=== PATIENT | male | born 1960 | race Caucasian/White ===

== ENCOUNTER 2017-12-22 13:13 | Observation (INO) | payer BC ==
[2017-12-22] MEDS ORDERED: NITROGLYCERIN OINT 1 INCH/GM PACKET TOPICAL STA (13:24)
[2017-12-22] MEDS ORDERED: ASPIRIN 81 MG PO STA (13:24)
--- NOTE | 2017-12-22 13:28 | ED ---
General Adult HPI - General Stated complaint: chest pain Time Seen by Provider: 12/22/17 13:15 Source: RN notes reviewed - History of Present Illness Initial comments: This is a 57-year-old male who presents emergency Department with a past medical history of hypertension high cholesterol. Patient states he has a family history of heart disease his father had a heart attack and bypass surgery in his early 50s. Patient states today's had 4 episodes of chest pain and shortness of breath as well as some sweating. Patient states the pain is on the left side of his chest does not appear to radiate anywhere but is quite significant and takes his breath away and it lasts approximately 10 minutes. Patient states it does seem to be associated with bending over at times but it doesn't always occur when he bends over. Patient states taking a deep breath does not increase the pain. Patient denies any recent history of fever chills or cough. Patient states currently is not having any chest pain. Patient denies any lightheadedness dizziness or near syncopal episode. Patient denies abdominal pain. Patient denies vomiting or diarrhea. - Related Data Home Medications Medication Instructions Recorded Confirmed Aspirin EC [Ecotrin Low Dose] 81 mg PO HS 12/22/17 12/22/17 Cetirizine HCl [Zyrtec] 10 mg PO DAILY 12/22/17 12/22/17 Glucosam/Timothy-Msm1/C/Jim/Bosw 1 tab PO DAILY 12/22/17 12/22/17 [Glucosamine-Chondroitin Tablet] Lisinopril [Zestril] 20 mg PO DAILY 12/22/17 12/22/17 Loratadine [Claritin] 10 mg PO DAILY 12/22/17 12/22/17 Metoprolol Succinate (ER) [Toprol 50 mg PO HS 12/22/17 12/22/17 Xl] Multivitamins, Thera [Multivitamin 1 tab PO DAILY 12/22/17 12/22/17 (formulary)] Simvastatin [Zocor] 20 mg PO HS 12/22/17 12/22/17 Tamsulosin HCl [Flomax] 0.4 mg PO HS 12/22/17 12/22/17 Allergies Allergy/AdvReac Type Severity Reaction Status Date / Time No Known Allergies Allergy Verified 12/22/17 13:41 Review of Systems ROS Statement: Those systems with pertinent positive or pertinent negative responses have been documented in the HPI. ROS Other: All systems not noted in ROS Statement are negative. General Exam - General Exam Comments Initial Comments: GENERAL: Patient is well-developed and well-nourished. Patient is nontoxic and well- hydrated and is in mild distress. ENT: Neck is soft and supple. No significant lymphadenopathy is noted. Oropharynx is clear. Moist mucous membranes. Neck has full range of motion without eliciting any pain. EYES: The sclera were anicteric and conjunctiva were pink and moist. Extraocular movements were intact and pupils were equal round and reactive to light. Eyelids were unremarkable. PULMONARY: Unlabored respirations. Good breath sounds bilaterally. No audible rales rhonchi or wheezing was noted. CARDIOVASCULAR: There is a regular rate and rhythm without any murmurs gallops or rubs. ABDOMEN: Soft and nontender with normal bowel sounds. No palpable organomegaly was noted. There is no palpable pulsatile mass. SKIN: Skin is clear with no lesions or rashes and otherwise unremarkable. NEUROLOGIC: Patient is alert and oriented x3. Cranial nerves II through XII are grossly intact. Motor and sensory are also intact. Normal speech, volume and content. Symmetrical smile. MUSCULOSKELETAL: Normal extremities with adequate strength and full range of motion. LYMPHATICS: No significant lymphadenopathy is noted PSYCHIATRIC: Normal psychiatric evaluation. Course Vital Signs 12/22/17 12/22/17 12/22/17 13:26 13:57 14:36 Temperature 98.2 F Pulse Rate 72 78 76 Respiratory 16 16 16 Rate Blood Pressure 164/100 143/87 138/78 O2 Sat by Pulse 97 96 95 Oximetry Medical Decision Making - Medical Decision Making Patient's chest x-ray showed no acute abnormality. Patient's EKG showed a normal sinus rhythm at 74 bpm GA interval 176 QRS is 132 QT interval 382 QTC is 424. Patient's EKG shows no ST segment elevation or depression patient does have a right bundle ez block however. Patient had another episode of chest pain while in the emergency department but only lasted for a short duration. Patient's chest pain was abnormal for him and that associated with his risk factors and shortness of breath I decided to start the patient heparin for unstable angina. I spoke with Dr. Lowe agreed to admit the patient I admitted the patient wrote admitting orders I consult cardiology continued heparin Nitropaste and aspirin on the floor. - Lab Data Result diagrams: 12/22/17 13:35 12/22/17 13:35 Lab Results 12/22/17 12/22/17 12/22/17 Range/Units 13:35 13:35 13:35 WBC 7.0 (3.8-10.6) k/uL RBC 5.69 (4.30-5.90) m/uL Hgb 16.8 (13.0-17.5) gm/dL Hct 47.4 (39.0-53.0) % MCV 83.4 (80.0-100.0) fL MCH 29.5 (25.0-35.0) pg MCHC 35.4 (31.0-37.0) g/dL RDW 13.6 (11.5-15.5) % Plt Count 153 (150-450) k/uL Neutrophils % 55 % Lymphocytes % 33 % Monocytes % 6 % Eosinophils % 2 % Basophils % 1 % Neutrophils # 3.9 (1.3-7.7) k/uL Lymphocytes # 2.3 (1.0-4.8) k/uL Monocytes # 0.4 (0-1.0) k/uL Eosinophils # 0.1 (0-0.7) k/uL Basophils # 0.1 (0-0.2) k/uL PT (9.0-12.0) sec INR (<1.2) APTT (22.0-30.0) sec Sodium 142 (137-145) mmol/L Potassium 4.1 (3.5-5.1) mmol/L Chloride 105 (98-107) mmol/L Carbon Dioxide 26 (22-30) mmol/L Anion Gap 11 mmol/L BUN 30 H (9-20) mg/dL Creatinine 1.01 (0.66-1.25) mg/dL Est GFR (CKD-EPI)AfAm >90 (>60 ml/min/1.73 sqM) Est GFR (CKD-EPI)NonAf 81 (>60 ml/min/1.73 sqM) Glucose 102 H (74-99) mg/dL Calcium 9.7 (8.4-10.2) mg/dL Magnesium 1.8 (1.6-2.3) mg/dL Total Bilirubin 0.8 (0.2-1.3) mg/dL AST 30 (17-59) U/L ALT 39 (21-72) U/L Alkaline Phosphatase 77 (38-126) U/L Total Creatine Kinase 169 (55-170) U/L CK-MB (CK-2) 1.2 (0.0-2.4) ng/mL CK-MB (CK-2) Rel Index 0.7 Troponin I <0.012 (0.000-0.034) ng/mL Total Protein 7.1 (6.3-8.2) g/dL Albumin 4.1 (3.5-5.0) g/dL 12/22/17 Range/Units 13:35 WBC (3.8-10.6) k/uL RBC (4.30-5.90) m/uL Hgb (13.0-17.5) gm/dL Hct (39.0-53.0) % MCV (80.0-100.0) fL MCH (25.0-35.0) pg MCHC (31.0-37.0) g/dL RDW (11.5-15.5) % Plt Count (150-450) k/uL Neutrophils % % Lymphocytes % % Monocytes % % Eosinophils % % Basophils % % Neutrophils # (1.3-7.7) k/uL Lymphocytes # (1.0-4.8) k/uL Monocytes # (0-1.0) k/uL Eosinophils # (0-0.7) k/uL Basophils # (0-0.2) k/uL PT 10.5 (9.0-12.0) sec INR 1.1 (<1.2) APTT 24.1 (22.0-30.0) sec Sodium (137-145) mmol/L Potassium (3.5-5.1) mmol/L Chloride (98-107) mmol/L Carbon Dioxide (22-30) mmol/L Anion Gap mmol/L BUN (9-20) mg/dL Creatinine (0.66-1.25) mg/dL Est GFR (CKD-EPI)AfAm (>60 ml/min/1.73 sqM) Est GFR (CKD-EPI)NonAf (>60 ml/min/1.73 sqM) Glucose (74-99) mg/dL Calcium (8.4-10.2) mg/dL Magnesium (1.6-2.3) mg/dL Total Bilirubin (0.2-1.3) mg/dL AST (17-59) U/L ALT (21-72) U/L Alkaline Phosphatase (38-126) U/L Total Creatine Kinase (55-170) U/L CK-MB (CK-2) (0.0-2.4) ng/mL CK-MB (CK-2) Rel Index Troponin I (0.000-0.034) ng/mL Total Protein (6.3-8.2) g/dL Albumin (3.5-5.0) g/dL Critical Care Time Critical Care Time: Yes Total Critical Care Time: 35 Disposition Clinical Impression: Unstable angina pectoris Disposition: ADMITTED IP TO THIS HOSP Referrals: Jose Argueta III, MD [Primary Care Provider] - 1-2 days Time of Disposition: 15:19
[2017-12-22 13:44] LABS: Basophils # (A) 0.1 k/uL (0-0.2); Basophils % (A) 1 %; Eosinophils # (A) 0.1 k/uL (0-0.7); Eosinophils % (A) 2 %; HCT 47.4 % (39.0-53.0); HGB 16.8 gm/dL (13.0-17.5); Lymphocytes # (A) 2.3 k/uL (1.0-4.8); Lymphocytes % (A) 33 %; MCH 29.5 pg (25.0-35.0); MCHC 35.4 g/dL (31.0-37.0); MCV 83.4 fL (80.0-100.0); Mean Platelet Volume 7.9; Monocytes # (A) 0.4 k/uL (0-1.0); Monocytes % (A) 6 %; Neutrophils # (A) 3.9 k/uL (1.3-7.7); Neutrophils % (A) 55 %; Platelet Count 153 k/uL (150-450); RBC 5.69 m/uL (4.30-5.90); RDW 13.6 % (11.5-15.5)
[2017-12-22 13:53] LABS: INR 1.1 (<1.2); Partial Thromboplastin Time 24.1 sec (22.0-30.0); Prothrombin Time 10.5 sec (9.0-12.0)
[2017-12-22 13:54] LABS: ALT 39 U/L (21-72); AST 30 U/L (17-59); Albumin 4.1 g/dL (3.5-5.0); Alkaline Phosphatase 77 U/L (38-126); Anion Gap 11 mmol/L; Blood Urea Nitrogen 30 mg/dL (9-20); Calcium 9.7 mg/dL (8.4-10.2); Carbon Dioxide 26 mmol/L (22-30); Chloride 105 mmol/L (98-107); Glucose 102 mg/dL (74-99); Magnesium 1.8 mg/dL (1.6-2.3); Potassium 4.1 mmol/L (3.5-5.1); Sodium 142 mmol/L (137-145); Total Bilirubin 0.8 mg/dL (0.2-1.3); Total Protein 7.1 g/dL (6.3-8.2)
[2017-12-22 14:08] LABS: Creatine Kinase 169 U/L (55-170)
[2017-12-22 14:22] LABS: Creatine Kinase MB 1.2 ng/mL (0.0-2.4); Troponin I <0.012 ng/mL (0.000-0.034)
--- NOTE | 2017-12-22 14:53 | XR ---
EXAMINATION TYPE: XR chest 2V DATE OF EXAM: 12/22/2017 HISTORY: Chest Pain. REFERENCE: NONE. FINDINGS: The lungs are clear. Pleural space are clear. Heart size is upper limits of normal. IMPRESSION: BORDERLINE CARDIOMEGALY.
[2017-12-22] MEDS ORDERED: HEPARIN SODIUM,PORCINE 5,000 UNIT/ML 1 ML VIAL IV ONE (15:16)
[2017-12-22] MEDS ORDERED: NITROGLYCERIN SL TABS 0.4 MG TAB SUBLINGUAL PRN (15:19)
[2017-12-22] MEDS ORDERED: HEPARIN SOD,PORK IN 0.45% NACL 25,000 UNIT in 0.45% NACL 1 500ML.BAG IV SCH (15:30)
--- NOTE | 2017-12-22 16:08 | P.HPIM ---
History of Present Illness 57-year-old pleasant gentleman came in with complaints of chest pain happens when he moves his chest when he bends down. But his chest pain was constant for about [address] from [employer] to the [employer]. Patient's chest pain changes with the movement and 7/10 in severity patient's chest pain is not really pleuritic but the has to catch his breath for a second when he had this chest pain is at [employer]. Patient denied any diaphoresis nausea lightheadedness. Patient just pain is not associated with food nonradiating and nonexertional. EKG showed some right bundle branch block. Troponin is negative patient has some risk factors including premature coronary artery disease in father and personal history of hypertension diabetes mellitus Review of Systems REVIEW OF SYSTEMS: CONSTITUTIONAL: No fever, no malaise, no fatigue. HEENT: No recent visual problems or hearing problems. Denied any sore throat. CARDIOVASCULAR: No orthopnea, PND, no palpitations, no syncope. PULMONARY: No shortness of breath, no cough, no hemoptysis. GASTROINTESTINAL: No diarrhea, no nausea, no vomiting, no abdominal pain. Normoactive bowel sounds. NEUROLOGICAL: No headaches, no weakness, no numbness. HEMATOLOGICAL: Denies any bleeding or petechiae. GENITOURINARY: Denies any burning micturition, frequency, or urgency. MUSCULOSKELETAL/RHEUMATOLOGICAL: Denies any joint pain, swelling, or any muscle pain. ENDOCRINE: Denies any polyuria or polydipsia. The rest of the 14-point review of systems is negative. Past Medical History Past Medical History: Hyperlipidemia, Hypertension History of Any Multi-Drug Resistant Organisms: None Reported Past Surgical History: Hernia Repair Past Psychological History: No Psychological Hx Reported Smoking Status: Never smoker Past Alcohol Use History: None Reported Past Drug Use History: None Reported Medications and Allergies Home Medications Medication Instructions Recorded Confirmed Type Aspirin EC [Ecotrin Low Dose] 81 mg PO HS 12/22/17 12/22/17 History Cetirizine HCl [Zyrtec] 10 mg PO DAILY 12/22/17 12/22/17 History Glucosam/Timothy-Msm1/C/Jim/Bosw 1 tab PO DAILY 12/22/17 12/22/17 History [Glucosamine-Chondroitin Tablet] Lisinopril [Zestril] 20 mg PO DAILY 12/22/17 12/22/17 History Loratadine [Claritin] 10 mg PO DAILY 12/22/17 12/22/17 History Metoprolol Succinate (ER) [Toprol 50 mg PO HS 12/22/17 12/22/17 History Xl] Multivitamins, Thera [Multivitamin 1 tab PO DAILY 12/22/17 12/22/17 History (formulary)] Simvastatin [Zocor] 20 mg PO HS 12/22/17 12/22/17 History Tamsulosin HCl [Flomax] 0.4 mg PO HS 12/22/17 12/22/17 History Allergies Allergy/AdvReac Type Severity Reaction Status Date / Time No Known Allergies Allergy Verified 12/22/17 13:41 Physical Exam Vitals: Vital Signs Temp Pulse Resp BP Pulse Ox 12/22/17 15:39 70 16 121/74 100 12/22/17 14:36 76 16 138/78 95 12/22/17 13:57 78 16 143/87 96 12/22/17 13:26 98.2 F 72 16 164/100 97 Intake and Output 12/22/17 12/22/17 12/22/17 06:59 14:59 22:59 Other: Weight 106.594 kg PHYSICAL EXAMINATION: GENERAL: The patient is alert and oriented x3, not in any acute distress. Well developed, well nourished. HEENT: Pupils are round and equally reacting to light. EOMI. No scleral icterus. No conjunctival pallor. Normocephalic, atraumatic. No pharyngeal erythema. No thyromegaly. CARDIOVASCULAR: S1 and S2 present. No murmurs, rubs, or gallops. PULMONARY: Chest is clear to auscultation, no wheezing or crackles. ABDOMEN: Soft, nontender, nondistended, normoactive bowel sounds. No palpable organomegaly. MUSCULOSKELETAL: No joint swelling or deformity. EXTREMITIES: No cyanosis, clubbing, or pedal edema. NEUROLOGICAL: Gross neurological examination did not reveal any focal deficits. SKIN: No rashes. Results CBC & Chem 7: 12/22/17 13:35 12/22/17 13:35 Labs: Abnormal Lab Results - Last 24 Hours (Table) 12/22/17 Range/Units 13:35 BUN 30 H (9-20) mg/dL Glucose 102 H (74-99) mg/dL Assessment and Plan Plan: -Chest pain: Atypical in nature patient will be evaluated by cardiology patient meant and up needing a stress test because of his risk factors. It appears to be either musculoskeletal or pericardial in nature. We will rule out acute coronary syndromes with troponins and EKGs 2 more sets -Hypertension -hyperlipidemia -Benign prostatic hypertrophy For above-mentioned chronic medical problems patient will be resumed and continued on home medications
[2017-12-22 17:24] VITALS: BMI 34.1
[2017-12-22] MEDS: NITROGLYCERIN OINT 1 INCH/GM PACKET TOPICAL SCH (17:36)
[2017-12-22 19:32] LABS: Creatine Kinase 133 U/L (55-170)
[2017-12-22 19:34] VITALS: RESP 16
[2017-12-22 19:45] LABS: Creatine Kinase MB 0.9 ng/mL (0.0-2.4); Troponin I <0.012 ng/mL (0.000-0.034)
[2017-12-22] MEDS ORDERED: METOPROLOL SUCCINATE (ER) 50 MG TAB.ER.24H PO SCH (21:00)
[2017-12-22] MEDS ORDERED: TAMSULOSIN 0.4 MG CAP.ER.24H PO SCH (21:00)
[2017-12-22] MEDS ORDERED: ATORVASTATIN 10 MG TAB PO SCH (21:00)
[2017-12-23] MEDS: NITROGLYCERIN OINT 1 INCH/GM PACKET TOPICAL SCH ×2 (01:31→04:59)
[2017-12-23 01:59] LABS: Creatine Kinase 122 U/L (55-170)
[2017-12-23 02:11] LABS: Creatine Kinase MB 0.9 ng/mL (0.0-2.4); Troponin I <0.012 ng/mL (0.000-0.034)
[2017-12-23 07:45] LABS: Cholesterol 168 mg/dL (<200); HDL Cholesterol 54 mg/dL (40-60); LDL Cholesterol,Calculated 93 mg/dL (0-99); Triglycerides 105 mg/dL (<150)
[2017-12-23] MEDS ORDERED: ASPIRIN 325 MG TAB PO SCH ×2 (09:00)
[2017-12-23] MEDS ORDERED: LISINOPRIL 20 MG TAB PO SCH (09:00)
[2017-12-23] MEDS ORDERED: NON-FORMULARY DRUG (Glucosam/Chon-Msm1/C/Mang/Bosw [Glucosamine-Chondroitin Tablet] 1 TAB) PO SCH (09:00)
[2017-12-23] MEDS ORDERED: LORATADINE 10 MG TAB PO SCH (09:00)
[2017-12-23] MEDS ORDERED: NON-FORMULARY DRUG (Cetirizine Hcl [Zyrtec] 10 MG) PO SCH (09:00)
--- NOTE | 2017-12-23 09:58 | P.CRDCN ---
History of Present Illness Consult date: 12/23/17 Consult reason: chest pain History of present illness: Mr. Hollingsworth is a pleasant 57-year-old male past medical history significant for hypertension, dyslipidemia and strong family history of CAD with father requiring bypass in his 50's. He denies personal history of CAD. He states he had a stress test many years ago that was negative. We have been asked to see him in consultation for complaints of chest pain. First on Saturday of last week he felt a tight sensation in his chest while at work sitting down. It was in the precordial region with no radiation of pain to the arm, back, neck or jaw. This was brief and went away on its own with no associated symptoms. Then again on Saturday while loading groceries in the car at [employer] he again felt a tight sensation in left anterior precodial region with shortness of breath. He describes this as a tight, numbing sensation. He denies dizziness, palpitations, diaphoresis, nausea or vomiting. The symptoms went away on their own after he sat down in the car but returned after arriving home and unloading the groceries again. By the time he arrived at the hospital he was chest pain free with no shortness of breath. EKG reveals right bundle branch block pattern. This was compared to old EKG from 2007, no changes. Chest xray reveals cardiomegaly with no acute cardiopulmonary process. Laboratory data reviewed, hemoglobin 16.8, potassium 4.1, magnesium 1.8, cardiac enzymes negative 3, LDL 93, HDL 54. Current cardiac medications include Zocor 20 mg daily, Toprol 50 mg daily, lisinopril 20 mg daily and aspirin 81 mg daily. Review of Systems At the time of my exam: CONSTITUTIONAL: Denies fever. Denies chills. EYES: Denies blurred vision. Denies vision changes. Denies eye pain. EARS, NOSE, MOUTH & THROAT: Denies headache. Denies sore throat. Denies ear pain. CARDIOVASCULAR: Denies chest pain. Denies shortness of breath. Denies orthopnea. Denies PND. Denies palpitations. RESPIRATORY: Denies cough. GASTROINTESTINAL: Denies abdominal pain. Denies diarrhea. Denies constipation. Denies nausea. Denies vomiting. MUSCULOSKELETAL: Denies myalgias. INTEGUMENTARY: Denies pruitis. Denies rash. NEUROLOGIC: Denies numbness. Denies tingling. Denies weakness. PSYCHIATRIC: Denies anxiety. Denies depression. ENDOCRINE: Denies fatigue. Denies weight change. Denies polydipsia. Denies polyurina. GENITOURINARY: Denies burning, hematuria or urgency with micturation. HEMATOLOGIC: Denies history of anemia. Denies bleeding. Past Medical History Past Medical History: Hyperlipidemia, Hypertension History of Any Multi-Drug Resistant Organisms: None Reported Past Surgical History: Hernia Repair Past Anesthesia/Blood Transfusion Reactions: No Reported Reaction Past Psychological History: No Psychological Hx Reported Smoking Status: Never smoker Past Alcohol Use History: None Reported Past Drug Use History: None Reported - Past Family History Father Family Medical History: Coronary Artery Disease (CAD) Additional Family Medical History / Comment(s): CABG, COLLAPSED LUNG, BRAIN TUMOR BEHIND EYE WITH REMOVAL Mother Family Medical History: Coronary Artery Disease (CAD) Medications and Allergies Home Medications Medication Instructions Recorded Confirmed Type Aspirin EC [Ecotrin Low Dose] 81 mg PO HS 12/22/17 12/22/17 History Cetirizine HCl [Zyrtec] 10 mg PO DAILY 12/22/17 12/22/17 History Glucosam/Timothy-Msm1/C/Jim/Bosw 1 tab PO DAILY 12/22/17 12/22/17 History [Glucosamine-Chondroitin Tablet] Lisinopril [Zestril] 20 mg PO DAILY 12/22/17 12/22/17 History Loratadine [Claritin] 10 mg PO DAILY 12/22/17 12/22/17 History Metoprolol Succinate (ER) [Toprol 50 mg PO HS 12/22/17 12/22/17 History Xl] Multivitamins, Thera [Multivitamin 1 tab PO DAILY 12/22/17 12/22/17 History (formulary)] Simvastatin [Zocor] 20 mg PO HS 12/22/17 12/22/17 History Tamsulosin HCl [Flomax] 0.4 mg PO HS 12/22/17 12/22/17 History Allergies Allergy/AdvReac Type Severity Reaction Status Date / Time No Known Allergies Allergy Verified 12/22/17 13:41 Physical Exam Vitals: Vital Signs Temp Pulse Pulse Resp BP BP Pulse Ox 12/23/17 03:50 98.0 F 59 L 16 108/67 95 12/23/17 03:22 53 L 16 12/23/17 00:00 61 16 12/22/17 23:18 98.1 F 74 16 157/76 95 12/22/17 20:00 69 16 12/22/17 19:31 97.8 F 67 16 123/80 95 12/22/17 17:20 70 12/22/17 16:01 97.9 F 70 18 133/84 96 12/22/17 15:39 70 16 121/74 100 12/22/17 14:36 76 16 138/78 95 12/22/17 13:57 78 16 143/87 96 12/22/17 13:26 98.2 F 72 16 164/100 97 Intake and Output 12/22/17 12/23/17 12/23/17 22:59 06:59 14:59 Intake Total 154.926 Balance 154.926 Intake: Intake, IV Titration 154.926 Amount Heparin Sod,Pork in 0.45% 154.926 NaCl 25,000 unit In 0.45 % NaCl 1 500ml.bag @ 9.3 UNITS/KG/HR 19.82 mls/hr IV .Q24H [facility] Rx#: [id number] Other: Voiding Method Toilet Toilet # Voids 3 Weight 111.1 kg Blood pressure 119/79 heart rate 58 afebrile maintaining oxygen saturation on room air GENERAL: This is a 57-year-old male in no apparent distress at the time of my examination. HEENT: Head is atraumatic, normocephalic. Pupils are equal, round. Sclerae anicteric. Conjunctivae are clear. Mucous membranes of the mouth are moist. Neck is supple. There is no jugular venous distention. No carotid bruit is heard. LUNGS: Clear to auscultation no wheezes, rales or rhonchi. No chest wall tenderness is noted on palpation or with deep breathing. HEART: Regular rate and rhythm without murmurs, rubs or gallops. S1 and S2 heard. ABDOMEN: Soft, nontender. Bowel sounds are heard. No organomegaly noted. EXTREMITIES: No evidence of peripheral edema and no calf tenderness noted. VASCULAR: Radial and dorsalis pedis pulses palpated, no evidence of clubbing. NEUROLOGIC: Patient is awake, alert and oriented x3. Results 12/22/17 13:35 03/25/18 13:35 Cardiac Enzymes 12/22/17 12/22/17 12/22/17 Range/Units 13:35 13:35 19:03 AST 30 (17-59) U/L CK-MB (CK-2) 1.2 0.9 (0.0-2.4) ng/mL Troponin I <0.012 <0.012 (0.000-0.034) ng/mL 12/23/17 Range/Units 00:55 AST (17-59) U/L CK-MB (CK-2) 0.9 (0.0-2.4) ng/mL Troponin I <0.012 (0.000-0.034) ng/mL Coagulation 12/22/17 12/22/17 12/23/17 Range/Units 13:35 22:45 06:45 PT 10.5 (9.0-12.0) sec APTT 24.1 34.8 H 53.5 H (22.0-30.0) sec Lipids 12/23/17 Range/Units 06:45 Triglycerides 105 (<150) mg/dL Cholesterol 168 (<200) mg/dL HDL Cholesterol 54 (40-60) mg/dL CBC 12/22/17 Range/Units 13:35 WBC 7.0 (3.8-10.6) k/uL RBC 5.69 (4.30-5.90) m/uL Hgb 16.8 (13.0-17.5) gm/dL Hct 47.4 (39.0-53.0) % Plt Count 153 (150-450) k/uL Comprehensive Metabolic Panel 12/22/17 Range/Units 13:35 Sodium 142 (137-145) mmol/L Potassium 4.1 (3.5-5.1) mmol/L Chloride 105 (98-107) mmol/L Carbon Dioxide 26 (22-30) mmol/L BUN 30 H (9-20) mg/dL Creatinine 1.01 (0.66-1.25) mg/dL Glucose 102 H (74-99) mg/dL Calcium 9.7 (8.4-10.2) mg/dL AST 30 (17-59) U/L ALT 39 (21-72) U/L Alkaline Phosphatase 77 (38-126) U/L Total Protein 7.1 (6.3-8.2) g/dL Albumin 4.1 (3.5-5.0) g/dL Current Medications Generic Name Dose Route Start Last Admin Trade Name Hortencia PRN Reason Stop Dose Admin Aspirin 325 mg 12/23/17 09:00 Aspirin PO DAILY [facility] Atorvastatin Calcium 10 mg 12/22/17 21:00 12/22/17 20:02 Lipitor PO 10 mg HS [facility]RIS Administration Heparin Sodium/Sodium Chloride 500 mls @ 19.82 mls/hr 12/22/17 15:30 23:39 25,000 unit/ Sodium Chloride IV 12.38 units/kg/hr .Q24H [facility]RIS 26.4 mls/hr Protocol Titration 9.3 UNITS/KG/HR Lisinopril 20 mg 12/23/17 09:00 Zestril PO DAILY [facility] Loratadine 10 mg 12/23/17 09:00 Claritin PO DAILY [facility] Metoprolol Succinate 50 mg 12/22/17 21:00 12/22/17 20:02 Toprol Xl PO 50 mg HS [facility] Administration Multivitamins 1 each 12/23/17 12:00 Theragran PO DAILY@1200 [facility] Nitroglycerin 1 inch 12/22/17 18:00 12/23/17 04:59 Nitro-Bid Oint TOPICAL Not Given Q6HR [facility] Nitroglycerin 0.4 mg 12/22/17 15:19 Nitrostat SUBLINGUAL Q5M PRN Chest Pain Tamsulosin HCl 0.4 mg 12/22/17 21:00 12/22/17 20:02 Flomax PO 0.4 mg HS [facility]RIS Administration Intake and Output 12/22/17 12/23/17 12/23/17 22:59 06:59 14:59 Intake Total 154.926 Balance 154.926 Intake: Intake, IV Titration 154.926 Amount Heparin Sod,Pork in 0.45% 154.926 NaCl 25,000 unit In 0.45 % NaCl 1 500ml.bag @ 9.3 UNITS/KG/HR 19.82 mls/hr IV .Q24H [facility] Rx#: [id number] Other: Voiding Method Toilet Toilet # Voids 3 Weight 111.1 kg 12/22/17 13:35 12/22/17 13:35 Assessment and Plan Assessment: ASSESSMENT 1. Chest pain, atypical. An acute coronary event has been ruled out with negative cardiac enzymes and no EKG evidence of ischemia. 2. Hypertension, controlled 3. Dyslipidemia, controlled on simvastatin. 4. Right bundle branch block on 12-lead EKG, old. 5. Family history of coronary artery disease, father with bypass in 50s. PLAN Obtain 2-D echocardiogram and Doppler study to assess cardiac structure and function. Perform Cardiolyte stress test to evaluate for reversible cardiac ischemia. Continue with aspirin 81 mg, simvastatin 20 mg, toprol 50mg and lisinopril 20 mg. If above diagnostic testing is negative he is stable from a cardiac perspective. Thank you kindly for this consultation. Nurse Practitioner note has been reviewed, I agree with a documented findings and plan of care. Patient was seen and examined.
--- NOTE | 2017-12-23 11:34 | NM ---
EXAMINATION TYPE: NM stress cardiolite complete DATE OF EXAM: 12/23/2017 COMPARISON: NONE HISTORY: Chest pain TECHNIQUE: After the intravenous administration of 9.8 mCi Tc 99m Sestamibi - Rest images obtained 4 5 minutes post injection. The patient exercised using a JEB protocol and 1 minute prior to peak e xercise was injected with 26.7 mCi Tc 99m Sestamibi - Stress images obtained 10 minutes post injectio n. FINDINGS: Targeted heart rate was achieved during performance of the study. Review of stress and rest SPECT mallorie ges demonstrates no distinct perfusion abnormality. Gated analysis shows normal wall motion with an estimated left ventricular ejection fraction of 64 %. IMPRESSION: No scintigraphic evidence for reversible ischemia
[2017-12-23 11:38] VITALS: BP 149/89; PULSE 80; TEMP 97.6
[2017-12-23] MEDS ORDERED: MULTIVITAMINS, THERA 1 EACH TAB PO SCH (12:00)
--- NOTE | 2017-12-23 12:52 | ECHOF ---
Referral Reason: MEASUREMENTS -------- HEIGHT: 180.3 cm WEIGHT: 110.7 kg BP: IVSd: 1.6 cm (0.6 - 1.1) LVIDd: 2.9 cm (3.9 - 5.3) LVPWd: 1.4 cm (0.6 - 1.1) IVSs: 1.9 cm LVIDs: 1.6 cm LVPWs: 1.8 cm Ao Diam: 3.4 cm (2.0 - 3.7) AV Cusp: 2.2 cm (1.5 - 2.6) LA Diam: 3.4 cm (2.7 - 3.8) MV EXCURSION: 14.924 mm (> 18.000) MV EF SLOPE: 55 mm/s (70 - 150) EPSS: 0.7 cm MV E Brice: 0.71 m/s MV DecT: 249 ms MV A Brice: 0.74 m/s MV E/A Ratio: 0.97 RAP: 5.00 mmHg RVSP: 16.77 mmHg FINDINGS -------- Sinus rhythm. This was a technically good study. The left ventricular size is normal. There is moderate concentric left ventricular hypertrophy. O verall left ventricular systolic function is normal with, an EF between 55 - 60 %. The right ventricle is normal in size and function. The left atrium is normal in size. The right atrium is normal in size. The aortic valve is trileaflet, and appears structurally normal. No aortic stenosis or regurgitation. There is trace mitral regurgitation. Trace tricuspid regurgitation present. The right ventricular systolic pressure, as measured by Dopp ler, is 16.77mmHg. Pulmonic valve appears structurally normal. The aortic root size is normal. Normal inferior vena cava with normal inspiratory collapse consistent with estimated right atrial pre ssure of 5 mmHg. The pericardium is normal. CONCLUSIONS -------- 1. Sinus rhythm. 2. This was a technically good study. 3. The left ventricular size is normal. 4. There is moderate concentric left ventricular hypertrophy. 5. Overall left ventricular systolic function is normal with, an EF between 55 - 60 %. 6. The right ventricle is normal in size and function. 7. The left atrium is normal in size. 8. The right atrium is normal in size. 9. The aortic valve is trileaflet, and appears structurally normal. No aortic stenosis or regurgitati on. 10. There is trace mitral regurgitation. 11. Trace tricuspid regurgitation present. 12. The right ventricular systolic pressure, as measured by Doppler, is 16.77mmHg. 13. Pulmonic valve appears structurally normal. 14. The aortic root size is normal. 15. Normal inferior vena cava with normal inspiratory collapse consistent with estimated right atrial pressure of 5 mmHg. 16. The pericardium is normal. [employer]ER: Brianna Mack RDCS
--- NOTE | 2017-12-23 13:29 | EST ---
EXERCISE STRESS DATE OF SERVICE: 12/23/2017 AGE: 57 SEX: Male HT: 5'11" WT: 244 pounds PROTOCOL: Cardiolite Jameel STAGE: III DURATION OF EXERCISE: 10:45 HEART RATE REST: 61 BLOOD PRESSURE REST: 130/92 MAXIMUM HEART RATE ACHIEVED: 151 MAXIMUM BLOOD PRESSURE: 183/83 85% MPHR: 137 100% MPHR: 161 METS: 12.1 INDICATIONS: Chest pain. CLINICAL INFORMATION: Baseline EKG revealed normal sinus rhythm with a right bundle branch block pattern and leftward axis. The patient walked for 10 minutes 45 seconds, achieved a maximal heart rate of 150 beats per minute, which is well above 85% of predicted maximal. He developed fatigue and shortness of breath but did not have any angina or arrhythmia. Because of underlying bundle branch block, I am calling this as an inconclusive stress test but technically I believe this could be a normal stress test without any evidence of ischemia. There was no angina or arrhythmia. The nuclear scan results, which are more pertinent, will be reported by the radiologist. GRACIELA / ZAKIN: [id number] /
--- NOTE | 2017-12-23 14:18 | P.DS ---
Providers Date of admission: 12/22/17 15:23 Attending physician: Ron Lowe Consults: 12/22/17 15:19 Consult Physician Urgent Consulting Provider: [facility] Consult Reason/Comments: Unstable angina Do you want consulting provider notified?: Yes Primary care physician: Jose Argueta [facility] Course: Patient was admitted for chest pain rule out acute coronary syndromes and patient underwent stress test which was negative. Patient's chest pain is either musculoskeletal or pericardial in nature and the patient was asked to take Advil if he still has pain patient at this point of time doesn't have any pain please refer to my dictation of H&P for further details Plan - Discharge Summary Discharge Rx Participant: No New Discharge Prescriptions: No Action Cetirizine HCl [Zyrtec] 10 mg PO DAILY Tamsulosin HCl [Flomax] 0.4 mg PO HS Simvastatin [Zocor] 20 mg PO HS Multivitamins, Thera [Multivitamin (formulary)] 1 tab PO DAILY Metoprolol Succinate (ER) [Toprol Xl] 50 mg PO HS Loratadine [Claritin] 10 mg PO DAILY Lisinopril [Zestril] 20 mg PO DAILY Aspirin EC [Ecotrin Low Dose] 81 mg PO HS Glucosam/Timothy-Msm1/C/Jim/Bosw [Glucosamine-Chondroitin Tablet] 1 tab PO DAILY Discharge Medication List Aspirin EC [Ecotrin Low Dose] 81 mg PO HS 12/22/17 [History] Cetirizine HCl [Zyrtec] 10 mg PO DAILY 12/22/17 [History] Glucosam/Timothy-Msm1/C/Jim/Bosw [Glucosamine-Chondroitin Tablet] 1 tab PO DAILY 12/22/17 [History] Lisinopril [Zestril] 20 mg PO DAILY 12/22/17 [History] Loratadine [Claritin] 10 mg PO DAILY 12/22/17 [History] Metoprolol Succinate (ER) [Toprol Xl] 50 mg PO HS 12/22/17 [History] Multivitamins, Thera [Multivitamin (formulary)] 1 tab PO DAILY 12/22/17 [History ] Simvastatin [Zocor] 20 mg PO HS 12/22/17 [History] Tamsulosin HCl [Flomax] 0.4 mg PO HS 12/22/17 [History] Follow up Appointment(s)/Referral(s): Robert Chapman MD [STAFF PHYSICIAN] - 01/10/18 1:45 pm Jose Argueta III, MD [Primary Care Provider] - 1-2 days Discharge Disposition: HOME SELF-CARE
== END 2017-12-23 14:40 | disposition home or self-care (01) ==
LOC: EC 13:13 → 3SUR 15:23 → 3OBS 12-23 07:16
PROVIDERS: ADMIT Hospitalist; ATTEND Hospitalist
DX: R07.89 Other chest pain (principal); R06.02 Shortness of breath; I10 Essential (primary) hypertension; E78.5 Hyperlipidemia, unspecified; N40.0 Benign prostatic hyperplasia without lower urinary tract symptoms; I45.10 Unspecified right bundle-branch block; Z79.82 Long term (current) use of aspirin; Z79.899 Other long term (current) drug therapy; Z82.49 Family history of ischemic heart disease and other diseases of the circulatory system
CPT/HCPCS: 96376 ×2; 96365 ×2; 99291 ×2; 96366 ×2; 36415; 93005; 93017; 93306; 80061; 80053; 82550 ×2; 82553 ×2; 83735; 84484 ×2; 85025; 85610; 85730 ×2; 71046; 78452; G0378 ×2; A9500; J1644 ×2

== ENCOUNTER → 2019-10-22 | Outpatient (CLI) | payer BC ==
--- NOTE | 2019-10-22 16:26 | US ---
EXAMINATION TYPE: US thyroid st tissue head/neck DATE OF EXAM: 10/22/2019 COMPARISON: NONE CLINICAL HISTORY: E07.9 Disorder of thyroid, unspecified. Abnormal labs. GLAND SIZE: Right Lobe: 5.4 x 2.6 x 2.8 cm Overall Parenchyma: heterogenous Left Lobe: 5.2 x 2.9 x 2.0 cm Overall Parenchyma: heterogeneous Isthmus Thickness: .4 cm NODULES RIGHT: # of nodules measured on right: 0 LEFT: # of nodules measured on left: 0 ISTHMUS: # of nodules measured in the isthmus: 0 Bilateral neck scanned, no evidence of lymphadenopathy. Slightly heterogeneous and enlarged thyroid without discrete solid or cystic nodule IMPRESSION: Heterogeneous enlarged thyroid gland without greater than 1 cm focal nodule.
== END | disposition home or self-care (01) ==
LOC: RADUSWWP 15:21
PROVIDERS: ATTEND Family Medicine
DX: E04.9 Nontoxic goiter, unspecified (principal)
CPT/HCPCS: 76536

== ENCOUNTER → 2020-06-13 | Outpatient (CLI) | payer BC ==
--- NOTE | 2020-06-13 08:37 | MR ---
MR right ankle HISTORY: Pain in right ankle, trauma 2 years prior Multiplanar multisequence imaging obtained through the right ankle Subcutaneous edema change is present. There is a small amount of fluid along the flexor tendons, the flexor tendons, extensor tendons, peroneus longus and brevis tendons are intact. At the level of the distal fibula small geodes are suspected. There is some increased intrinsic signal along the peroneus longus and brevis tendons at the level of the distal fibula, some increased signal also present with in the peroneus longus tendon in the midfoot, coronal image #11. Small joint effusion is present. Ach illes tendon is intact, small amount of increased signal within the substance could represent a parti al thickness tear. There is a plantar calcaneal spur. Plantar aponeurosis is intact. Osteoarthritic c hanges are present within the midfoot, sagittal image #11 shows probable reactive marrow signal serrato e, arthropathy at the tarsometatarsal joint, some spurring and probable geode formation present at th e proximal fourth metatarsal, sagittal image 15. Lateral cuneiform also shows some probable geodes, r eactive marrow signal change, coronal image #9 and sagittal image #13. Articular cartilage signal at the tibiotalar joint is maintained. No evident ligamentous tear. IMPRESSION: Findings suggest a longitudinal or partial tear within the peroneus longus tendon. Subcut aneous edema. Osteoarthritis. Additional findings above.
== END | disposition home or self-care (01) ==
LOC: RADMRIMAIN 06:39
PROVIDERS: ATTEND Family Medicine
DX: M19.071 Primary osteoarthritis, right ankle and foot (principal); M79.89 Other specified soft tissue disorders

== ENCOUNTER → 2020-07-20 | Outpatient (CLI) | payer BC | END | disposition home or self-care (01) | LOC: LABWHC1 11:46 | PROVIDERS: ATTEND Nurse Practitioner Family | DX: Z20.828 Contact with and (suspected) exposure to other viral communicable diseases (principal) | CPT/HCPCS: U0003; C9803 ==

== ENCOUNTER → 2020-10-21 | Outpatient (CLI) | payer BC | END | disposition home or self-care (01) | LOC: LABWHC1 08:46 | PROVIDERS: ATTEND Nurse Practitioner Family | DX: Z20.822 Contact with and (suspected) exposure to COVID-19 (principal) | CPT/HCPCS: U0003; C9803; U0005 ==

== ENCOUNTER 2025-02-16 05:35 | Day surgery (SDC) | payer MEDICARE, BC ==
[2025-02-16] MEDS ORDERED: LIDOCAINE 1% (10MG/ML) FOR IV START INTRADERMA PRN (06:35)
[2025-02-16] MEDS: IV FLUID CONTINUATION 1,000 ML IV ONE (06:44)
[2025-02-16 07:00] LABS: Basophils # (A) 0.06 10*3/uL (0.00-0.10); Basophils % (A) 1.1 %; Eosinophils # (A) 0.14 10*3/uL (0.04-0.35); Eosinophils % (A) 2.5 %; HCT 45.3 % (39.6-50.0); HGB 16.3 g/dL (13.0-17.0); Lymphocytes # (A) 2.13 10*3/uL (0.90-5.00); Lymphocytes % (A) 38.2 %; MCH 29.5 pg (27.0-32.0); MCV 81.9 fL (80.0-97.0); Mean Platelet Volume 9.9 fL (9.5-12.2); Monocytes # (A) 0.69 10*3/uL (0.20-1.00); Monocytes % (A) 12.4 %; Neutrophils # (A) 2.53 10*3/uL (1.80-7.70); Neutrophils % (A) 45.4 %; Platelet Count 174 10*3/uL (140-440); RBC 5.53 10*6/uL (4.40-5.60); RDW 13.6 % (11.5-14.5); WBC 5.57 10*3/uL (4.50-10.00)
[2025-02-16] MEDS: LACTATED RINGERS 1,000 ML IV SCH (07:00)
[2025-02-16] MEDS ORDERED: fentaNYL (PF) 50 MCG/ML 2 ML AMP IV PRN (07:00)
[2025-02-16] MEDS: DEXAMETHASONE SOD PHOSPHATE 4 MG/ML 1 ML VIAL IV ONE (07:01)
[2025-02-16] MEDS: ONDANSETRON 4 MG/2 ML VIAL IVP ONE (07:01)
[2025-02-16] MEDS: ACETAMINOPHEN TAB 500 MG TAB PO PRN (07:01)
[2025-02-16] MEDS: MIDAZOLAM 2 MG/2 ML VIAL IV ONE (07:10)
--- NOTE | 2025-02-16 07:21 | P.ANPRN ---
Procedure Note - Anesthesia - Nerve Block Performed Bilateral Erector Spinae Single Time Out Performed: Yes (0710) Date of Procedure: 02/16/25 Procedure Start Time: 07:10 Procedure Stop Time: 07:15 Location of Patient: PreOp Indication: Acute Post-Operative Pain, Requested by Surgeon Sedation Type: Sedate with meaningful contact maintained Preparation: Sterile Prep, Sterile Dressing Position: Sitting Catheter: None Needle Types: Pajunk Needle Gauge: 21 Ultrasound used to visualize needle placement: Yes Ultrasound used to observe medication spread: Yes Injectate: 0.5% Ropivacaine (see comment for volume) (21 mL of block solution used on each side. The block solution containing 20 mL of 0.5% ropivacaine mixed with 20 mL of preservative-free normal saline, and 8 mg of dexamethasone) Blood Aspirated: No Pain Paresthesia on Injection Noted: No Resistance on Injection: Normal Image Stored and Saved: Yes Events: Uneventful and Well Tolerated
[2025-02-16] MEDS: HEPARIN SODIUM,PORCINE 5,000 UNIT/ML 1 ML VIAL SQ PRN (07:30)
[2025-02-16] MEDS ORDERED: GLYCOPYRROLATE 0.2 MG/ML 2 ML VIAL ONE (07:35)
[2025-02-16] MEDS ORDERED: SODIUM CHLORIDE 0.9% (PF) 10 ML VIAL ONE (07:35)
[2025-02-16] MEDS ORDERED: LIDOCAINE 1% INJ 10MG/ML (20 ML MDV) ONE (07:35)
[2025-02-16] MEDS ORDERED: ePHEDrine 50 MG/ML 1 ML VIAL ONE (07:35)
[2025-02-16] MEDS ORDERED: fentaNYL (PF) 50 MCG/ML 2 ML AMP ONE (07:35)
[2025-02-16] MEDS ORDERED: ROCURONIUM 10 MG/ML (5 ML VIAL) IV ONE (07:35)
[2025-02-16] MEDS ORDERED: KETAMINE HCL IN 0.9 % NACL 50 MG/5 ML SYRINGE ONE (07:35)
[2025-02-16] MEDS ORDERED: KETOROLAC 15 MG/ML 1 ML VIAL ONE (07:35)
[2025-02-16] MEDS ORDERED: SUCCINYLCHOLINE CHLORIDE 200 MG/10 ML VIAL IV ONE (07:35)
[2025-02-16] MEDS ORDERED: ROPIVACAINE 5 MG/ML 30 ML VIAL ONE (07:35)
[2025-02-16] MEDS ORDERED: DEXAMETHASONE SOD PHOSPHATE 4 MG/ML 1 ML VIAL ONE (07:35)
[2025-02-16] MEDS ORDERED: PROPOFOL 10 MG/ML 20 ML VIAL IV ONE (07:35)
[2025-02-16] MEDS: ceFAZolin 3 GM in SODIUM CHLORIDE 0.9% 100 ML IVPB PRN (07:40)
--- NOTE | 2025-02-16 07:44 | P.GSHP ---
History of Present Illness H&P Date: 02/16/25 Chief Complaint: Recurrent umbilical hernia This is a six 4-year-old male who presents today for operative pair of recurrent umbilical hernia. Patient had umbilical hernia pair approximately 15 years ago. Patient developed a 5 cm umbilical hernia. Past Medical History Past Medical History: GERD/Reflux, Hyperlipidemia, Hypertension, Sleep Apnea/CPAP/BIPAP Additional Past Medical History / Comment(s): seasonal allegies, rt ankle edema at times. cpap History of Any Multi-Drug Resistant Organisms: None Reported Past Surgical History: Hernia Repair Additional Past Surgical History / Comment(s): colonoscopy, Past Anesthesia/Blood Transfusion Reactions: No Reported Reaction Smoking Status: Never smoker - Past Family History Father Family Medical History: Coronary Artery Disease (CAD) Additional Family Medical History / Comment(s): CABG, COLLAPSED LUNG, BRAIN TUMOR BEHIND EYE WITH REMOVAL Mother Family Medical History: Coronary Artery Disease (CAD), Deep Vein Thrombosis (DVT) Medications and Allergies Home Medications Medication Instructions Recorded Confirmed Type Aspirin EC [Ecotrin Low Dose] 81 mg PO HS 12/22/17 02/16/25 History Cetirizine HCl [Zyrtec] 10 mg PO DAILY 12/22/17 02/16/25 History Glucosam/Timothy-Msm1/C/Jim/Bosw 1 tab PO HS 12/22/17 02/09/25 History [Glucosamine-Chondroitin Tablet] Loratadine [Claritin] 10 mg PO DAILY 12/22/17 02/09/25 History Metoprolol Succinate (ER) [Toprol 50 mg PO DAILY 12/22/17 02/16/25 History Xl] Multivitamins, Thera [Multivitamin 1 tab PO DAILY 12/22/17 02/09/25 History (formulary)] Simvastatin [Zocor] 20 mg PO HS 12/22/17 02/09/25 History Tamsulosin HCl [Flomax] 0.4 mg PO HS 12/22/17 02/09/25 History Otc Calcium 1 tab PO DAILY 02/09/25 02/09/25 History Cholecalciferol [Vitamin D3 (125 250 mcg PO DAILY 02/09/25 02/09/25 History Mcg = 5000 Iu)] Famotidine 20 mg PO DAILY 02/09/25 02/16/25 History Ibuprofen 800 mg PO Q8H PRN 02/09/25 02/09/25 History Olmesartan Medoxomil 40 mg PO HS 02/09/25 02/09/25 History Allergies Allergy/AdvReac Type Severity Reaction Status Date / Time No Known Allergies Allergy Verified 02/16/25 06:27 Surgical - Exam Vital Signs Temp Pulse Resp BP Pulse Ox 97.8 F 77 18 177/95 96 02/16/25 06:36 02/16/25 06:36 02/16/25 06:36 02/16/25 06:36 02/16/25 06:36 - General well developed, well nourished, no distress - Eyes PERRL - ENT normal pinna - Neck no masses - Respiratory normal expansion - Cardiovascular Rhythm: regular - Abdomen Recurrent umbilical hernia Abdomen: soft, non tender Results - Labs 02/16/25 06:48 Assessment and Plan Assessment: Recurrent umbilical hernia. Will perform laparoscopic robotic assisted repair.
[2025-02-16] MEDS: LIDOCAINE 1%-EPI 1:100,000 20 ML VIAL SQ ONE (08:01)
[2025-02-16] MEDS: LACTATED RINGERS 1,000 ML IV ONE (08:21)
--- NOTE | 2025-02-16 08:44 | P.OP ---
Date of Procedure: 02/16/25 Preoperative Diagnosis: Recurrent umbilical hernia Postoperative Diagnosis: Recurrent umbilical hernia Procedure(s) Performed: Laparoscopic robot-assisted pair of recurrent umbilical hernia Transversus abdominis plane block Anesthesia: DHARMESH Surgeon: Doug Tanner Estimated Blood Loss (ml): 5 Pathology: none sent Condition: stable Disposition: PACU Operative Findings: 5 cm umbilical hernia Description of Procedure: The patient was placed on the operating table in the supine position. He received general anesthesia. His abdomen was prepped and draped usual fashion. Using a 5 mm optical trocar under direct visualization the peritoneal cavity was entered in the left upper quadrant. The abdomen was then insufflated. The laparoscope was placed back into the perineal cavity. Next a 8 mm robotic trocar was placed in the left lower quadrant and a 12 mm robotic trocar was placed in the left lateral position. The original 5 mm trocar was exchanged for a 8 mm robotic trocar. A four-quadrant transversus abdominis plane block was performed 1% local Xylocaine. The patient's placed in the left side up position. And the patient was u docked to the robot The umbilical hernia was visualized. Using hook cautery the peritoneum over the umbilical hernia was excised. The fascial opening was repaired using 0V LOC suture. Next a piece of 11 cm round ventral light ST mesh was placed into the. Cavity and secured with 2 OV lock suture. The patient was undocked the robot. The needles were retrieved. The fascia of the 12 mm trocar site was closed with 0 Ethibond suture. Skin was closed interrupted 3-0 Monocryl suture. Dermabond dressings was applied. Patient top procedure well and was sent to recovery room stable condition.
[2025-02-16 08:54] VITALS: TEMP 97
[2025-02-16] MEDS: HYDROmorphone 0.5 MG/0.5 ML SYRINGE IVP PRN (08:56)
[2025-02-16 09:05] LABS: Glucose,Whole Blood 211 mg/dL (70-110)
[2025-02-16 10:31] VITALS: RESP 14
[2025-02-16 10:32] VITALS: BP 135/70; PULSE 78
== END 2025-02-16 11:30 | disposition home or self-care (01) ==
LOC: OR 05:35
PROVIDERS: ATTEND Surgery
DX: K42.9 Umbilical hernia without obstruction or gangrene (principal); G89.18 Other acute postprocedural pain; I10 Essential (primary) hypertension; E78.5 Hyperlipidemia, unspecified; G47.33 Obstructive sleep apnea (adult) (pediatric); K21.9 Gastro-esophageal reflux disease without esophagitis; Z79.82 Long term (current) use of aspirin; Z79.899 Other long term (current) drug therapy
CPT/HCPCS: 49615; S2900; 64468; 85025